=== PATIENT | female | born 1980 | race Caucasian/White ===

== ENCOUNTER 2020-07-10 09:29 | Outpatient (CLI) | payer BC | END 2020-07-10 09:30 | disposition home or self-care (01) | LOC: CTENTCT 09:29 | PROVIDERS: ATTEND Otolaryngology Plastic Surgery within the Head & Neck | DX: J32.8 Other chronic sinusitis (principal) | CPT/HCPCS: 70486 ==

== ENCOUNTER 2023-06-21 09:55 | Outpatient (CLI) | payer OTHER | END 2023-06-21 09:56 | disposition home or self-care (01) | LOC: ULT 09:55 | PROVIDERS: ATTEND Family Medicine | DX: K82.8 Other specified diseases of gallbladder (principal) | CPT/HCPCS: 76705 ==

== ENCOUNTER 2024-07-30 13:35 | Outpatient (CLI) | payer OTHER | END 2024-07-30 13:36 | disposition home or self-care (01) | LOC: BICMAMMO 13:35 | PROVIDERS: ATTEND Family Medicine | DX: Z12.31 Encounter for screening mammogram for malignant neoplasm of breast (principal); Z80.3 Family history of malignant neoplasm of breast | CPT/HCPCS: 77067 ==